=== PATIENT | male | born 1975 | race Two or more races ===

== ENCOUNTER 2021-04-24 20:30 | Inpatient (IN) | payer MEDICAID ==
[~2021-04-24] VITALS: Ht 160 cm; Wt 84.9 kg
[2021-04-24 20:40] VITALS: BP 155/94
--- NOTE | 2021-04-24 20:40 | NUR ---
ADMISSION/TRANSFER NOTE PATIENT TRANSFERRED FROM [facility] AND ADMITTED TO TELE RM 321 BED 1 TELE APPLIED. PT SR IN 70S. PT A/OX4 DENIES CHEST PAIN AT THIS TIME. PATIENT TRANSFERRED TO HAVE CARDIAC CATH PERFORMED. REPORT FROM [facility] ORIGINALLY RECIEVED FROM DIANNA RN OF DAY SHIFT FROM A KAYKAY RN AND ENDORSED TO MYSELF. PT IN NO APPARENT DISTRESS. DENIES PAIN. BREATHING EVEN AND UNLABORED ON RA. RIGHT AC 20 GAUGE IV HEPLOCK FLUSHED WITH NO S/S OF COMPLICATIONS STARTED GREENSKEEPER SUPERVISOR. PATIENT ORIENTED TO ROOM. DEMONSTRATED USE OF CALL LIGHT. BED DOWN LOCKED SRX2. WILL CONT TO MONITOR. Addendum: 04/24/21 at 2331 by EMERY STALEY RN ADMISSION ASSESSMENT PERFORMED WITH TRANSLATION FROM FAMILY MEMBER BON. PATIENT TURNED DOWN OFFER OF PROFESSIONAL INTERPRETATION SERVICES BUT INFORMED THEY WERE AVAIALBLE.
[2021-04-24 20:56] VITALS: BP 155/94
--- NOTE | 2021-04-24 21:40 | NUR ---
NIKOLAS DIRECTOR POST MIXED CROP AND LIVESTOCK FARM WORKER FOR [facility] INFORMED OF PATIENT DIRECT ADMISSION AWAITING ADMISSION ORDERS.
[2021-04-24] MEDS ORDERED: ONDANSETRON HCL/PF 4 MG/2 ML VIAL IVP PRN (23:00)
[2021-04-24] MEDS ORDERED: MORPHINE SULFATE INJ 2 MG/ML DISP.SYRIN IV PRN (23:00)
[2021-04-24] MEDS ORDERED: MAG HYDROX/AL HYDROX/SIMETH 30 ML UDC PO PRN (23:00)
[2021-04-24] MEDS ORDERED: MAGNESIUM HYDROXIDE 30 ML UDC PO PRN (23:00)
[2021-04-24] MEDS ORDERED: Z GUARD REMEDY 2 OZ OINT TP PRN (23:00)
[2021-04-24] MEDS ORDERED: ACETAMINOPHEN 325 MG TABLET PO PRN (23:00)
[2021-04-24] MEDS ORDERED: ZOLPIDEM TARTRATE 5 MG TABLET PO PRN (23:00)
--- NOTE | 2021-04-24 23:22 | NUR ---
patient scheduled for cardiac cath at 1pm 04/25/21 and be transferred to icu bed 253 after procedure. per charge nurse luis angel
[2021-04-24 23:33] LABS: BASOPHILS % (AUTO) 0.8 % (0.0-2.0); EOSINOPHILS % (AUTO) 0.6 % (0.0-6.0); HEMATOCRIT 42 % (39-51); HEMOGLOBIN 14.5 g/dL (13.5-17.5); LYMPHOCYTES # (AUTO) 2.8 K/uL (0.8-4.8); LYMPHOCYTES % (AUTO) 43.3 % (20.0-44.0); MEAN CORPUSCULAR HGB CONC 34 g/dl (31.0-36.0); MEAN CORPUSCULAR VOLUME 89 fL (80-96); MONOCYTES # (AUTO) 0.6 K/uL (0.1-1.30); MONOCYTES % (AUTO) 8.8 % (2.0-12.0); NEUTROPHILS % (AUTO) 46.5 % (43.0-81.0); PLATELET COUNT (AUTO) 278 K/uL (150-450); RED BLOOD CELL COUNT(AUTO) 4.73 MIL/uL (4.5-6.0); WHITE BLOOD COUNT (AUTO) 6.4 K/uL (4.3-11.0)
[2021-04-24 23:45] LABS: ALBUMIN 3.9 g/dL (3.4-5.0); BILIRUBIN,TOTAL 0.4 mg/dL (0.2-1.0); CALCIUM, SERUM 9.1 mg/dL (8.5-10.1); POTASSIUM 4.6 mmol/L (3.5-5.1)
[2021-04-25] VITALS (21 sets, daily range): BP systolic 78–142; BP diastolic 46–99
--- NOTE | 2021-04-25 00:30 | NUR ---
NIKOLAS IN TO SEE PATIENT. PT TO BE NPO IN PREPARATION FOR CARDIAC CATH.
[2021-04-25 06:39] LABS: BASOPHILS % (AUTO) 0.6 % (0.0-2.0); HEMATOCRIT 42 % (39-51); HEMOGLOBIN 14.5 g/dL (13.5-17.5); LYMPHOCYTES # (AUTO) 2.5 K/uL (0.8-4.8); MEAN CORPUSCULAR HGB CONC 34 g/dl (31.0-36.0); MEAN CORPUSCULAR VOLUME 89 fL (80-96); MONOCYTES # (AUTO) 0.5 K/uL (0.1-1.30); MONOCYTES % (AUTO) 9.4 % (2.0-12.0); NEUTROPHILS # (AUTO) 2.5 K/uL (1.8-8.9); PLATELET COUNT (AUTO) 267 K/uL (150-450); RED BLOOD CELL COUNT(AUTO) 4.76 MIL/uL (4.5-6.0); WHITE BLOOD COUNT (AUTO) 5.6 K/uL (4.3-11.0)
[2021-04-25 06:55] LABS: CREATININE 0.9 mg/dL (0.6-1.3); MAGNESIUM 2.3 mg/dL (1.8-2.4); PHOSPHORUS 4.2 mg/dL (2.5-4.9); POTASSIUM 3.8 mmol/L (3.5-5.1)
[2021-04-25 07:06] LABS: THYROID STIMULATING HORMONE 1.48 uIU/mL (0.358-3.74)
[2021-04-25] MEDS: ENOXAPARIN SODIUM 80 MG/0.8 ML DISP.SYRIN SQ SCH ×2 (07:46→20:00)
[2021-04-25 07:52] LABS: ALBUMIN 3.8 g/dL (3.4-5.0); BILIRUBIN,DIRECT 0.1 mg/dL (0.0-0.2); BILIRUBIN,TOTAL 0.4 mg/dL (0.2-1.0); TOTAL PROTEIN, SERUM 6.9 g/dL (6.4-8.2)
--- NOTE | 2021-04-25 07:52 | NUR ---
PRECONSTRUCTION MANAGER OPENING NOTES RECEIVED PATIENT IN BED, AWAKE. PATIENT IS AOx4. [place] SPEAKING. BREATHING IS EVEN AND UNLABORED. NO S/SX OF RESPIRATORY DISTRESS. NO SOB NOTED. TELE MONITOR DETECTS SINUS RHYTHM WITH RATE AT 78. PATIENT DENIES PAIN AT THIS TIME. IV ACCESS IN RIGHT AC #20, IV PATENT AND INTACT. SAFETY MEASURE IN PLACE: BED IN LOWEST, LOCKED POSITION, BRAKES ON, SIDERAILS UP x2. CALL LIGHT AND TABLE WITHIN REACH. WILL CONTINUE TO MONITOR.
[2021-04-25] MEDS: PANTOPRAZOLE 40 MG TABLET.DR PO SCH (08:53)
[2021-04-25] MEDS: ASPIRIN EC 81 MG TABLET.DR PO SCH (08:53)
--- NOTE | 2021-04-25 09:02 | NUR ---
RN NOTES SPOKE W/ MIAN FROM CHIEF CLINICAL OFFICER AND INFORMED ABOUT PATIENT'S CARDIAC CATH PROCEDURE TODAY. PER MIAN, PROCEDURE IS AT 1400, PICK-UP TIME OF 1300. OKAY FOR PATIENT TO HAVE MORNING MEDS; LOVENOX HELD TODAY. WILL ORDER PT/INR PER MIAN.
--- NOTE | 2021-04-25 12:20 | NUR ---
RN NOTES TRUCK SWITCHER PERSONNEL AT BEDSIDE AND INSERTED ANOTHER IV LINE ON RAC #20.
[2021-04-25] MEDS ORDERED: IV NS 0.9% 1,000 ML ONE (12:51)
[2021-04-25] MEDS ORDERED: LIDOCAINE HCL/MPF 1% 30 ML VIAL IJ ONE (12:52)
[2021-04-25] MEDS ORDERED: IODIXANOL 150 ML IV ONE (12:52)
[2021-04-25] MEDS ORDERED: NITROGLYCERIN IN 5 % DEXTROSE 250 ML IV ONE (12:56)
--- NOTE | 2021-04-25 13:14 | NUR ---
RN NOTES PATIENT WENT TO CARDIAC MOLDER WAX BALL FOR PROCEDURE VIA BED ACCOMPANIED BY 2 NURSES.
[2021-04-25] MEDS ORDERED: MIDAZOLAM HCL 2 MG/2ML VIAL ONE (13:15)
[2021-04-25] MEDS ORDERED: FENTANYL PF 100MCG/2ML AMPUL ONE (13:15)
[2021-04-25] MEDS ORDERED: HEPARIN SODIUM, PORCINE 5000 UNITS/1 ML VIAL ONE (14:19)
[2021-04-25] MEDS ORDERED: HEPARIN SODIUM, PORCINE 1,000 UNIT/ML VIAL ONE (14:19)
[2021-04-25] MEDS ORDERED: IODIXANOL 320MG/ML 50 ML IV ONE (14:19)
[2021-04-25] MEDS ORDERED: TICAGRELOR 90 MG TABLET PO ONE (14:45)
[2021-04-25] MEDS ORDERED: IODIXANOL 320MG/ML 100 ML IV ONE (14:48)
--- NOTE | 2021-04-25 15:20 | NUR ---
PT ARRIVED IN ICU FROM PE MANAGER AT 1520. PT ALERT OX3, APPEARS TO FOLLOW COMMANDS. TR BAND IN PLACE. RIGHT GROIN APPROACH DRESSING CDI, NO BLEEDING OR HEMATOMA NOTED. WILL CONTINUE TO MONITOR.
[2021-04-25] MEDS ORDERED: IV NS 0.9% 1,000 ML IV PRN (16:00)
--- NOTE | 2021-04-25 17:00 | NUR ---
PT BECAME DIAPHORETIC, HEART RATE FELL TO 44, SBP DROPPED TO 78. PER PT'S AT BEDSIDE PT JUST DRANK A CUP OF ICE WATER REALLY QUICKLY. PT'S VITALS WENT BACK TO NORMAL WITHIN 3 MINUTES AND PATIENT STATED HE FELT MUCH BETTER. BLOOD SUGAR WAS TAKEN AT THIS TIME, 95 RESULT. PT MONITORED CLOSELY.
--- NOTE | 2021-04-25 19:30 | NUR ---
END OF SHIFT NOTE: NO FURTHER EVENTS SINCE 1700. PT WAS ADVISED TO DRINK COLD WATER BY SIPS AT THIS TIME. RIGHT GROIN SITE SOFT, NO BLEEDING OR HEMATOMA NOTED. TR BAND REMOVED AT 1850 PER PROTOCOL AND MD ORDERS, NO BLEEDING OR SWELLING AT SITE, TEGADERM APPLIED. PT CHECKED ON HOURLY AND PRN BY NURSING STAFF.
--- NOTE | 2021-04-25 19:58 | NUR ---
ICU/FOURTH GRADE TEACHER RECIEVED REPORT FROM DAY NURSE. SEE FLOWSHEET FOR ASSESSMENT. THERE IS NO SKIN ISSUES TO ADDRESS. PT IS IN A FLAT POSITION, FOR 6 HOURS. DRESSING TO RIGHT FEMORAL IS CLEAN, DRY AND INTACT. THE RIGHT WRIST TEGADERM IS HAS A SMALL SPOT THAT BLEED, WHICH WAS CIRCLED AND WILL MONITOR THIS. PT CURRENTLY DENIES ANY PAIN, CALL LIGHT WITHIN REACH. WILL CONTINUE TO MONITOR THIS PT.
--- NOTE | 2021-04-25 20:33 | NUR ---
ICU/DIESEL ENGINEER PT HAS 2000 ORDER FOR LOVENOX 80MG SQ TONIGHT AND EVERY 12 HOURS ALONG WITH PLAVIX 600MG TONIGHT AND TO GO HOME WITH THIS EVERY DAY 75MG. CALLED [facility] ABOUT IF HE WANTED THE LOVENOX 80MG STILL SAID NO AND TO D/C THIS. CHARGE NURSE NOTED THIS AND WAS D/C'D ON THE NOV.
--- NOTE | 2021-04-25 21:01 | NUR ---
ICU/BELT TURNER TECH IS HERE TO DO A ECHO AT BEDSIDE.
[2021-04-25] MEDS ORDERED: CLOPIDOGREL BISULFATE 300 MG TABLET PO ONE (22:00)
--- NOTE | 2021-04-25 23:08 | NUR ---
ICU/SPECIAL FORCES OFFICER HEAT TREAT WORKER HERE TO DRAW TROP. AWAIT FOR RESULTS.
[2021-04-26] VITALS (16 sets, daily range): BP systolic 98–140; BP diastolic 57–84
--- NOTE | 2021-04-26 01:00 | NUR ---
ICU/SYNTHETIC RESIN OPERATOR PT'S DRESSING TO THE RIGHT FEMERAL IS CLEAN DRY AND INTACT. PT DENIES ANY PAIN. CALL LIGHT WITHIN REACH.
--- NOTE | 2021-04-26 04:00 | NUR ---
ICU/PSYCHOLOGY TECH PT APPEARS TO BE ASLEEP. NO ACUTE DISTRESS SEEN. CALL LIGHT WITHIN REACH.
[2021-04-26] MEDS: PANTOPRAZOLE 40 MG TABLET.DR PO SCH (07:40)
[2021-04-26] MEDS: ASPIRIN EC 81 MG TABLET.DR PO SCH (08:57)
[2021-04-26] MEDS ORDERED: CLOPIDOGREL BISULFATE 75 MG TABLET PO SCH (09:00)
--- NOTE | 2021-04-26 09:13 | NUR ---
ICU/EXTRACTING MACHINE OPERATOR PT UP TO CHAIR FOR BREAKFAST. AM MEDS GIVEN. PT AMBULATED IN HALLWAY.NO DISTRESS SEEN. NO PAIN REPORTED.
[2021-04-26] MEDS ORDERED: PANT40TA2 PO (10:18)
[2021-04-26] MEDS ORDERED: ASPI-1420 PO (10:18)
[2021-04-26] MEDS ORDERED: ATOR40TA PO (10:18)
[2021-04-26] MEDS ORDERED: CLOP75TA15 PO (10:18)
--- NOTE | 2021-04-26 12:36 | NUR ---
ICU/SPEECH LANGUAGE THERAPIST PT WAS GIVEN DISCHARGE INSTRUCTIONS, ALONG WITH THE PRESCRIPTION TO THE PLAVIX. PT VERBALIZED THE INSTRUCTIONS GIVEN. PT VERBALIZED THAT HE WILL FOLLOW UP WITH HIS BONDING MOLDER IN 2 WEEKS AND PRIMARY MD IN A WEEK. PT ALSO VERBALIZED THE DISCHARGE SUMMARY ALONG WITH THE TEACHING. PT WAS WHEELED OUT TO CAR. SIGNED THE D/C PAPERS, BELONGING PAPERS, ALL IV HL WERE D/C'D.
== END 2021-04-26 12:33 | disposition home or self-care (01) | DRG 174 ==
LOC: TELE 20:30 → ICU 04-25 15:19
PROVIDERS: ADMIT Student in an Organized Health Care Education/Training Program; ATTEND Nurse Practitioner Acute Care
PROC: 027135Z Dilation of Coronary Artery, Two Arteries with Two Drug-eluting Intraluminal Devices, Percutaneous Approach (ICD-10-PCS; principal; 2021-04-25)
PROC: B211YZZ Fluoroscopy of Multiple Coronary Arteries using Other Contrast (ICD-10-PCS; 2021-04-25)
PROC: 4A023N7 Measurement of Cardiac Sampling and Pressure, Left Heart, Percutaneous Approach (ICD-10-PCS; 2021-04-25)
PROC: B215YZZ Fluoroscopy of Left Heart using Other Contrast (ICD-10-PCS; 2021-04-25)
PROC: B34HZZZ Ultrasonography of Right Upper Extremity Arteries (ICD-10-PCS; 2021-04-25)
DX: I21.4 Non-ST elevation (NSTEMI) myocardial infarction (principal); I10 Essential (primary) hypertension; R74.01 Elevation of levels of liver transaminase levels; Z82.49 Family history of ischemic heart disease and other diseases of the circulatory system; I25.10 Atherosclerotic heart disease of native coronary artery without angina pectoris
CPT/HCPCS: 36415; 80048-TC; 80053-TC; 80061-TC; 80076-TC; 82962-TC; 83735-TC; 84100-TC; 84443-TC; 84484-TC; 85025-TC; 85610-TC; 87081-TC; 92980; 92981; 92982; 93307-TC; C1725; C1769; C1894; G0378; G0500; J1644; J1650; J2250; J3010; J3490; J7030; Q9967